=== PATIENT | male | born 1980 | race Caucasian/White ===

== ENCOUNTER 2017-09-05 12:21 | Inpatient (IN) | payer OTHER ==
[~2017-09-05] VITALS: Ht 175.3 cm; Wt 56.5 kg
[2017-09-05] MEDS ORDERED: LORAZEPAM 2 MG/ML 1 ML VIAL ONE (12:33)
[2017-09-05 12:46] LABS: HEMATOCRIT 46.8 % (42-52); HEMOGLOBIN 16.3 g/dL (14.0-18.0); MEAN CELL VOLUME 88.3 fL (80-100); MEAN CORPUSCULAR HEMOGLOBIN 30.8 pg (25-34); MEAN CORPUSCULAR HGB CONC 34.8 g/dl (32-36); MEAN PLATELET VOLUME 10.4 fL (7.4-10.4); PLATELET COUNT 339 K/uL (130-400); RED CELL DISTRIBUTION WIDTH CV 12.9 % (11.5-14.5); RED CELL DISTRIBUTION WIDTH SD 41.5 fL (36.4-46.3); WHITE BLOOD COUNT 23.27 K/uL (4.8-10.8)
--- NOTE | 2017-09-05 12:52 | EMERGENCY ROOM VISIT NOTE ---
History Report prepared by Arianne: Eric Sheikh Under the Supervision of: Dr. Margret Hidalgo M.D. First contact with patient: 12:31 Chief Complaint: STROKE SYMPTOMS Stated Complaint: STROKE LIKE, CANT SPEAK, SEIZING UP History of Present Illness The patient is a 37 year old male who presents to the Emergency Room with complaints of muscle spasms and seizing that began shorty prior to arrival. The patient's states that he was at [employer] when he started to go into full- body spasms and cramps. He also started to seize up. The patient did eat cereal for breakfast and had a BM this morning. The BM was diarrhea-like, but the notes that this is common for him due to taking Levsin. He takes Levsin for bacteria in his gut. The notes that this medication will dehydrate him at times. He is on Celexa for anxiety. Source of History: patient Onset: [place] Position: arm (bilateral), hand (bilateral), finger(s) (ALl) Quality: cramping, other (Spasming) Timing: constant Associated Symptoms: + diarrhea Review of Systems See HPI for pertinent positives & negatives. A total of 10 systems reviewed and were otherwise negative. Past Medical & Surgical Medical Problems: (1) Anxiety (2) IBS (irritable bowel syndrome) Anxiety Family History None pertinent discussed. Social History Smoking Status: Unknown if Ever Smoked Drug Use: none Marital Status: Housing Status: lives with significant other Occupation Status: employed Current/Historical Medications Scheduled Calcitriol (Calcitriol), 2 CAP PO DAILY Calcium Carbonate (Tums), 2,000 MG PO QID Citalopram Hydrobromide (Celexa), 40 MG PO QAM Cyanocobalamin (Vitamin B-12), 1,000 MCG PO QAM Ergocalciferol (Vitamin D 76102 Unit), 1 CAP PO WK Hyoscyamine Sulfate (Levsin), 2 TABS SL QID Ibuprofen Tab (Advil), 600 MG PO UD Magnesium Oxide (Magnesium-Oxide), 400 MG PO BID Potassium Ext Rel (Klor-Con), 20 MEQ PO DAILY Allergies Coded Allergies: Erythromycin (Unverified Adverse Reaction, Intermediate, RASH, 09/05/17) Physical Exam Vital Signs Date Time Temp Pulse Resp B/P (MAP) Pulse Ox O2 Delivery O2 Flow Rate FiO2 09/05/17 14:47 97 16 119/78 97 Room Air 09/05/17 13:44 101 18 107/73 100 09/05/17 13:24 100 21 82/47 98 Room Air 09/05/17 12:43 130 22 97 Nasal Cannula 2.0 09/05/17 12:38 126 158/87 99 Nasal Cannula 2.0 09/05/17 12:32 157 09/05/17 12:28 162/120 09/05/17 12:22 37.0 160 20 163/93 99 Room Air Physical Exam Vital signs reviewed. Tachycardia General: No significant distress. Anxious HEENT: No scleral icterus, PERRLA, neck supple. Atraumatic. Cardiovascular: Sig tachycardia, regular Pulmonary: Clear to auscultation bilaterally, normal work of breathing. Abdomen: Soft, nontender, nondistended, positive bowel sounds. Musculoskeletal: Atraumatic, no peripheral edema. Bilateral upper extremity carpopedal spasm Neurologic: Patient awake alert and oriented x 3, able to follow commands, but severe carpal spasms BUE Skin: Warm, dry, no rash Medical Decision & Procedures ER Provider Diagnostic Interpretation: Radiology results as stated below per my review and radiologist interpretation: PA CHEST RADIOGRAPH AND UPRIGHT AND SUPINE AP RADIOGRAPHS OF THE ABDOMEN CLINICAL HISTORY: Abdominal bloating. Multiple contractures. COMPARISON STUDY: No previous studies for comparison. FINDINGS: Lung volumes are normal. No pneumothorax or pleural effusion is noted. There is no evidence for pulmonary edema. Cardiac size is normal. Mediastinal contours are normal. There is no free air. A moderate amount stool is noted within the colon. There are tiny radiodensities within the abdomen and pelvis. IMPRESSION: 1. No free air or evidence of bowel obstruction. 2. Moderate amount stool within the colon. 3. Scattered indeterminate tiny radiodensities throughout the abdomen and pelvis which are likely within bowel. 4. No acute cardiopulmonary findings. Electronically signed by: Sigifredo Storey M.D. 09/05/2017 1:28 PM Dictated Date/Time: 09/05/2017 1:26 PM Laboratory Results Test 09/05/17 12:30 09/05/17 12:40 09/05/17 13:29 09/05/17 14:35 Neutrophils % (Manual) 65.1 % Lymphocytes % (Manual) 9.8 % Variant Lymphocytes % (manual) 17.9 % Monocytes % (Manual) 6.3 % Eosinophils % (Manual) 0.9 % Neutrophils # (Manual) 15.15 K/uL (1.4-6.5) Total Absolute Neutrophils 15.15 K/uL (1.4-6.5) Lymphocytes # (Manual) 2.28 K/uL (1.2-3.4) Absolute Variant Lymphocytes 4.17 K/uL Total Absolute Lymphocytes 6.45 K/uL (1.2-3.4) Monocytes # (Manual) 1.47 K/uL (0.11-0.59) Eosinophils # (Manual) 0.21 K/uL (0-0.5) Direct Bilirubin 0.1 mg/dl (0-0.2) Lipase 130 U/L (73-393) Thyroid Stimulating Hormone (TSH) 2.090 uIu/ml (0.300-4.500) Salicylates Level 1.9 mg/dl (2.8-20) Acetaminophen Level < 2 ug/ml (10-30) Bedside Hemoglobin 17.0 g/dl (14.0-18.0) Bedside Hematocrit 50 % (42-52) Bedside Sodium 143 mEq/L (135-144) Bedside Potassium 4.3 mEq/L (3.3-5.0) Bedside Chloride 98 mEq/L (101-112) Bedside Total CO2 24 mEq/l (24-31) Bedside Blood Urea Nitrogen 15 mg/dl (7-18) Bedside Creatinine 0.9 mg/dl (0.6-1.3) Bedside Glucose (other) 139 mg/dl (70-99) Bedside Ionized Calcium (Alice) 0.80 mmol/l (1.12-1.32) Ethyl Alcohol mg/dL < 3.0 mg/dl (0-3) Urine Color YELLOW Urine Appearance CLEAR (CLEAR) Urine pH 7.0 (4.5-7.5) Urine Specific [place] 1.007 (1.000-1.030) Urine Protein NEG (NEG) Urine Glucose (UA) NEG (NEG) Urine Ketones NEG (NEG) Urine Occult Blood NEG (NEG) Urine Nitrite NEG (NEG) Urine Bilirubin NEG (NEG) Urine Urobilinogen NEG (NEG) Urine Leukocyte Esterase NEG (NEG) Urine Opiates Screen NEG (NEG) Urine Methadone, Qualitative NEG (NEG) Urine Barbiturates NEG (NEG) Urine Phencyclidine (PCP) Level NEG (NEG) Ur Amphetamine/Methamphetamine NEG (NEG) MDMA (Ecstasy) Screen NEG (NEG) Urine Benzodiazepines Screen NEG (NEG) Urine Cocaine Metabolite NEG (NEG) Urine Marijuana (THC) NEG (NEG) Test 09/05/17 14:44 Parathyroid Hormone (Intact) 289.1 pg/mL (18.4-80.1) Laboratory results per my review. Medications Administered Medications (Trade) Dose Ordered Sig/Dylon Route Start Time Stop Time Status Last Admin Dose Admin Lorazepam (Ativan Inj) 2 mg STK-MED ONCE .ROUTE 09/05/17 12:33 09/05/17 12:34 DC 09/05/17 12:38 2 MG Sodium Chloride 2,000 ml @ 999 mls/hr Q2H1M STAT IV 09/05/17 13:05 09/05/17 15:05 DC 09/05/17 13:05 999 MLS/HR Magnesium Sulfate (Magnesium Sulfate 1gm / D5W) 2 gm NOW STAT IV 09/05/17 13:49 09/05/17 13:50 DC 09/05/17 14:03 2 GM Calcium Gluconate 4000 mg/Sodium Chloride 140 ml @ 35 mls/hr NOW STAT IV 09/05/17 14:33 09/05/17 18:32 DC 09/05/17 14:52 35 MLS/HR ED Course 1232: Past medical records reviewed. The patient was evaluated in room A1. A complete history and physical examination was performed. 1233: Ordered Ativan 2 mg IV. 1305: Ordered Sodium Chloride 2000 mL @ 999 mL/hr IV. 1349: Ordered Magnesium Sulfate 2 gm IV. Medical Decision Differential diagnosis: Etiologies such as premature contractions, electrolyte abnormality, cardiac dysrhythmia, thyroid dysfunction, pulmonary embolism, infection, gastrointestinal, as well as others were entertained. This pt was evaluated and appeared to be in significant discomfort. Pt was tachycardic with sig BUE spasms. 2 mg IV ativan and IVF were initiated. Pt was was found to be neurologically intact otherwise. Lab work reveals a significant hypomagnesemia, hypocalcemia. Pt VS normalized significantly. He was feeling improved. The etiology of the electrolyte abnl is unclear. Pt was d/w the hospitalist service for further managment. Impression Primary Impression: Carpopedal spasm Additional Impressions: Hypocalcemia Hypomagnesemia Critical Care I have personally spent greater than 35 minutes of critical care time in the direct management of this patient. This includes bedside care, interpretation of diagnostic studies, and testing, discussion with consultants, patient, and family members, and other required patient management activities. This 35 minutes is in excess of all separately billable procedures. Scribe Attestation The scribe's documentation has been prepared under my direction and personally reviewed by me in its entirety. I confirm that the note above accurately reflects all work, treatment, procedures, and medical decision making performed by me. Departure Information Prescriptions Calcitriol (CALCITRIOL) 0.5 Mcg Cap 2 CAP PO DAILY for 30 Days, #60 CAP 2 Refills Prov: Roldan Murray, DO 09/07/17 Ergocalciferol (VITAMIN D 64876 UNIT) 50,000 Unit Cap 1 CAP PO WK for 28 Days, #4 CAP 2 Refills Prov: Roldan Murray, DO 09/07/17 Calcium Carbonate (Tums) 500 Mg Chew 2000 MG PO QID for 30 Days, #480 TABS Prov: Roldan Murray, DO 09/07/17 Cyanocobalamin (Vitamin B-12) 500 Mcg Tab 1000 MCG PO QAM for 30 Days, #60 TAB Prov: Roldan Murray, DO 09/07/17 Potassium Ext Rel (Klor-Con) 20 Meq Tabcr 20 MEQ PO DAILY for 30 Days, #30 TAB Prov: Roldan Murray, DO 09/07/17 Magnesium Oxide (Magnesium-Oxide) 400 Mg Tab 400 MG PO BID for 30 Days, #60 TAB Prov: Roldan Murray, DO 09/07/17 Referrals Gus Gonzáles M.D.([facility]) (PCP) Patient Instructions My [facility] Problem Qualifiers
[2017-09-05 12:53] LABS: ISTAT CREATININE 0.9 mg/dl (0.6-1.3); ISTAT IONIZED CALCIUM 0.8 mmol/l (1.12-1.32); ISTAT POTASSIUM 4.3 mEq/L (3.3-5.0)
[2017-09-05 13:02] LABS: ALBUMIN 3.7 gm/dl (3.4-5.0); ALT/SGPT 40 U/L (12-78); AST/SGOT 37 U/L (15-37); BLOOD UREA NITROGEN 15 mg/dl (7-18); CALCIUM 6.4 mg/dl (8.5-10.1); CARBON DIOXIDE 27 mmol/L (21-32); CREATININE 1.12 mg/dl (0.60-1.40); GLUCOSE 136 mg/dl (70-99); LIPASE 130 U/L (73-393); POTASSIUM 4.1 mmol/L (3.5-5.1); SODIUM 141 mmol/L (136-145)
[2017-09-05] MEDS ORDERED: SODIUM CHLORIDE 0.9% 1000ML 2,000 ML IV STA (13:05)
[2017-09-05 13:11] LABS: ALKALINE PHOSPHATASE 69 U/L (45-117)
--- NOTE | 2017-09-05 13:29 | DIAGNOSTIC IMAGING REPORT ---
PA CHEST RADIOGRAPH AND UPRIGHT AND SUPINE AP RADIOGRAPHS OF THE ABDOMEN CLINICAL HISTORY: Abdominal bloating. Multiple contractures. COMPARISON STUDY: No previous studies for comparison. FINDINGS: Lung volumes are normal. No pneumothorax or pleural effusion is noted. There is no evidence for pulmonary edema. Cardiac size is normal. Mediastinal contours are normal. There is no free air. A moderate amount stool is noted within the colon. There are tiny radiodensities within the abdomen and pelvis. IMPRESSION: 1. No free air or evidence of bowel obstruction. 2. Moderate amount stool within the colon. 3. Scattered indeterminate tiny radiodensities throughout the abdomen and pelvis which are likely within bowel. 4. No acute cardiopulmonary findings. Electronically signed by: Sigifredo Storey M.D. 09/05/2017 1:28 PM Dictated Date/Time: 09/05/2017 1:26 PM
[2017-09-05] MEDS ORDERED: MAGNESIUM SULFATE 1GM / D5W 1 GM BAG IV STA (13:49)
[2017-09-05] MEDS ORDERED: CALCIUM GLUCONATE 10% 10 ML VIAL IV STA (14:23)
[2017-09-05] MEDS ORDERED: CALCIUM GLUCONATE 10% 4,000 MG in SODIUM CHLORIDE 0.9% 100ML 100 ML IV STA (14:33)
[2017-09-05] MEDS ORDERED: HYOS1TAB SL (14:36)
[2017-09-05] MEDS ORDERED: CHOL2000 PO (14:36)
[2017-09-05] MEDS ORDERED: CITA40TA12 PO (14:36)
[2017-09-05] MEDS ORDERED: MULT-884 PO (14:36)
[2017-09-05] MEDS ORDERED: IBUP-103 PO (14:39)
[2017-09-05] MEDS ORDERED: ACETAMINOPHEN 325 MG TAB PO PRN (15:45)
--- NOTE | 2017-09-05 16:24 | History and Physical ---
History & Physical Date & Time of Service: Sep 05, 2017 at 16:24 Chief Complaint: Stroke Like, Cant Speak, Seizing Up Primary Care Physician: Gus Gonzáles M.D.(BASILIO) History of Present Illness Source: patient, clinic records, hospital records Patient is a 37yo M with a PMH of IBS and anxiety who presents with muscle spasms and generalized weakness beginning [employer]. Patient has been experiencing tingling in fingers, hands and feet for about a week, which has happened to him before and usually resolved with hydration. This morning at work, patient noticed he was having difficulty typing due to his hands "seizing up". Was unable to straighten out fingers and had difficulty gripping the steering wheel of his car. took him to urgent care and by this point patient was experiencing throbbing pain in both hands and legs "weren't working". [place] generally weak and was having difficulty speaking. Was sent to ED for further evaluation. Denies any fever, chills, headache, lightheadedness, visual changes , chest pain, SOB, abdominal pain, nausea, vomiting, dysuria or constipation. Has a history of IBS for which he takes Levsin. Endorses chronic bouts of diarrhea and no recent bowel changes. Denies change in appetite or unintentional weight loss. States that he received an extensive GI workup when he lived in [place] that was negative. Upon arrival in ED, was tachycardic with HR of 160. Found to have Mg of 1 and Ca of 6. Was started on IV resuscitation of electrolytes and given Ativan for anxiety. Leukocytosis of 23. Past Medical/Surgical History Medical Problems: (1) Anxiety Status: Chronic (2) IBS (irritable bowel syndrome) Status: Chronic Social History Smoking Status: Never Smoker Drug Use: none Marital Status: Allergies Coded Allergies: Erythromycin (Unverified Adverse Reaction, Intermediate, RASH, 09/05/17) Home Medications Scheduled Cholecalciferol (Vitamin D3), 1 CAP PO QAM Citalopram Hydrobromide (Celexa), 40 MG PO QAM Hyoscyamine Sulfate (Levsin), 2 TABS SL QID Ibuprofen Tab (Advil), 600 MG PO UD Multiple Vitamin (Multi Vitamin Daily), 1 TAB PO QAM Review of Systems Ten systems reviewed and negative except as noted in the HPI. Physical Exam Vital Signs Date Time Temp Pulse Resp B/P (MAP) Pulse Ox O2 Delivery O2 Flow Rate FiO2 09/05/17 14:47 97 16 119/78 97 Room Air 09/05/17 13:44 101 18 107/73 100 09/05/17 13:24 100 21 82/47 98 Room Air 09/05/17 12:43 130 22 97 Nasal Cannula 2.0 09/05/17 12:38 126 158/87 99 Nasal Cannula 2.0 09/05/17 12:32 157 09/05/17 12:28 162/120 09/05/17 12:22 37.0 160 20 163/93 99 Room Air General Appearance: + thin, + pertinent finding (pale ) Head: normocephalic, atraumatic Eyes: normal inspection, PERRL, sclerae normal ENT: normal ENT inspection, hearing grossly normal, pharynx normal (dry mucous membranes ) Neck: supple, thyroid normal, trachea midline Respiratory/Chest: chest non-tender, lungs clear, normal breath sounds, no respiratory distress, no accessory muscle use Cardiovascular: no murmur, normal peripheral pulses, + tachycardia Abdomen/GI: non tender, soft, no organomegaly Back: normal inspection Extremities/Musculoskelatal: normal inspection, no calf tenderness, no pedal edema, + pertinent finding (Trousseau sign bilaterally ) Neurologic/Psych: no motor/sensory deficits, alert, normal mood/affect, oriented x 3 Skin: warm/dry, no rash, + pallor Diagnostics Laboratory Results Results Past 24 Hours Test 09/05/17 12:30 09/05/17 12:39 09/05/17 12:40 09/05/17 13:29 Range/Units White Blood Count 23.27 4.8-10.8 K/uL Red Blood Count 5.30 4.7-6.1 M/uL Hemoglobin 16.3 14.0-18.0 g/dL Hematocrit 46.8 42-52 % Mean Corpuscular Volume 88.3 80-100 fL Mean Corpuscular Hemoglobin 30.8 25-34 pg Mean Corpuscular Hemoglobin Concent 34.8 32-36 g/dl Platelet Count 339 130-400 K/uL Mean Platelet Volume 10.4 7.4-10.4 fL RDW Standard Deviation 41.5 36.4-46.3 fL RDW Coefficient of Variation 12.9 11.5-14.5 % Neutrophils % (Manual) 65.1 % Lymphocytes % (Manual) 9.8 % Variant Lymphocytes % (manual) 17.9 % Monocytes % (Manual) 6.3 % Eosinophils % (Manual) 0.9 % Neutrophils # (Manual) 15.15 1.4-6.5 K/uL Total Absolute Neutrophils 15.15 1.4-6.5 K/uL Lymphocytes # (Manual) 2.28 1.2-3.4 K/uL Absolute Variant Lymphocytes 4.17 K/uL Total Absolute Lymphocytes 6.45 1.2-3.4 K/uL Monocytes # (Manual) 1.47 0.11-0.59 K/uL Eosinophils # (Manual) 0.21 0-0.5 K/uL Sodium Level 141 136-145 mmol/L Potassium Level 4.1 3.5-5.1 mmol/L Chloride Level 103 98-107 mmol/L Carbon Dioxide Level 27 21-32 mmol/L Anion Gap 11.0 27.0 16-25 mmol/L Blood Urea Nitrogen 15 7-18 mg/dl Creatinine 1.12 0.60-1.40 mg/dl Estimated GFR () 98.1 Estimated GFR (Non- 84.7 BUN/Creatinine Ratio 13.4 10-20 Random Glucose 136 70-99 mg/dl Calcium Level 6.4 8.5-10.1 mg/dl Magnesium Level 1.1 1.8-2.4 mg/dl Total Bilirubin 0.6 0.2-1 mg/dl Direct Bilirubin 0.1 0-0.2 mg/dl Aspartate Amino Transf (AST/SGOT) 37 15-37 U/L Alanine Aminotransferase (ALT/SGPT) 40 12-78 U/L Alkaline Phosphatase 69 45-117 U/L Total Creatine Kinase 381 39-308 U/L Total Protein 7.0 6.4-8.2 gm/dl Albumin 3.7 3.4-5.0 gm/dl Lipase 130 73-393 U/L Thyroid Stimulating Hormone (TSH) 2.090 0.300-4.500 uIu/ml Salicylates Level 1.9 2.8-20 mg/dl Acetaminophen Level < 2 10-30 ug/ml Phosphorus Level 4.3 2.5-4.9 mg/dl Bedside Hemoglobin 17.0 14.0-18.0 g/dl Bedside Hematocrit 50 42-52 % Bedside Sodium 143 135-144 mEq/L Bedside Potassium 4.3 3.3-5.0 mEq/L Bedside Chloride 98 101-112 mEq/L Bedside Total CO2 24 24-31 mEq/l Bedside Blood Urea Nitrogen 15 7-18 mg/dl Bedside Creatinine 0.9 0.6-1.3 mg/dl Bedside Glucose (other) 139 70-99 mg/dl Bedside Ionized Calcium (Alice) 0.80 1.12-1.32 mmol/l Ethyl Alcohol mg/dL < 3.0 0-3 mg/dl Test 09/05/17 14:35 09/05/17 14:44 09/05/17 15:54 09/05/17 16:18 Range/Units Urine Color YELLOW Urine Appearance CLEAR CLEAR Urine pH 7.0 4.5-7.5 Urine Specific [place] 1.007 1.000-1.030 Urine Protein NEG NEG Urine Glucose (UA) NEG NEG Urine Ketones NEG NEG Urine Occult Blood NEG NEG Urine Nitrite NEG NEG Urine Bilirubin NEG NEG Urine Urobilinogen NEG NEG Urine Leukocyte Esterase NEG NEG Urine Opiates Screen NEG NEG Urine Methadone, Qualitative NEG NEG Urine Barbiturates NEG NEG Urine Phencyclidine (PCP) Level NEG NEG Ur Amphetamine/Methamphetamine NEG NEG MDMA (Ecstasy) Screen NEG NEG Urine Benzodiazepines Screen NEG NEG Urine Cocaine Metabolite NEG NEG Urine Marijuana (THC) NEG NEG Parathyroid Hormone (Intact) 289.1 18.4-80.1 pg/mL Diagnostic Radiology Chest/abd XR: IMPRESSION: 1. No free air or evidence of bowel obstruction. 2. Moderate amount stool within the colon. 3. Scattered indeterminate tiny radiodensities throughout the abdomen and pelvis which are likely within bowel. 4. No acute cardiopulmonary findings. EKG Normal sinus rhythm Cannot rule out Anterior infarct , age undetermined Impression Assessment and Plan Patient is a 37yo M with a PMH of IBS and anxiety who presents with muscle spasms and generalized weakness beginning [employer] and was found to by hypocalcemic to 6. Hypocalcemia: -Carpopedal spasms upon arrival, + Trousseau sign -Improved with IV calcium gluconate -Mg of 1 upon arrival. Replacing -Phos, TSH normal. PTH elevated to 298 -Nephro consulted -Vit D, B12, folate, SPEP pending -Recheck electrolytes and replace if indicated -GI losses from diarrhea likely a component -Urine tox screen negative -EKG without acute changes -Monitor on telemetry Leukocytosis: -WBC elevated to 23 -Denies fever, chills, no clear source of infection -CXR, UA without abnormalities -Likely a stress reaction -CK mildly elevated to 381 -IVF resuscitation, replace electrolytes -Repeat CBC, CK in AM Tachycardia: resolved -2/2 anxiety, dehydration -Improved with aggressive IVF resuscitation, ativan -Monitor IBS: -H/o extensive negative GI workup at OSH 5 years ago -Cont Levsin Anxiety: -Cont SSRI -Ativan PRN Malnutrition: -BMI of 19 -Endorses significant weight loss 5 yrs ago when GI problems began -Denies intentional weight loss, poor diet -Dietitian consult DVT Ppx: Teds, SCDs Code status: FULL PCP: Nivia Dispo: Admitted to telemetry. Plan to return home once medically stable. Patient seen in collaboration with Dr. Moctezuma. Please see addendum. ATTENDING ADDENDUM Patient seen and examined care coordinated with Gerri Duke PA-C 37-year-old male with prior history of anxiety disorder irritable bowel syndrome , presented to ER with Carpopedal spasms Patient mentioned he has intermittent diarrhea on and off due to irritable bowel syndrome, having tingling numbness on his fingers and toes since Monday Today while at work it got progressively worse, had severe spasm of both hands- he could not work on his computer keyboard, later had stiffness on left arm went to see urgent care at [facility], developed lower extremity weakness and dysarthria Sent to ER via ambulance Lab work revealed Ionized calcium 0.98/total calcium 6.4 Mag 1.1 Marked leukocytosis 23K Patient was given IV calcium gluconate in ER, IV fluids bolus Symptoms resolved Symptom resolved after IV calcium gluconate Patient mentions that he does get occasional tingling numbness of his fingers and extremities which resolves spontaneously No report of fever chills No cough or shortness of breath Patient admitted to telemetry Started with IV fluids normal saline at 125 mL/h Nephrology consulted, appreciate input Lab work PRP / mg/phos/calcium/ionized calcium will be continued to monitor every 4 hours And correct accordingly Case discussed with [facility] endocrine Dr. Skinny Strickland PTH level elevated to more than 287, low vitamin D level/normal TSH Per endocrine: Patient's presentation likely secondary to severe GI malabsorption PTH level appropriately elevated Recommend to give 50,000 vitamin D oral x1 dose now and q. weekly Will need to be continued for at least 3 months Add Tums 2000 mg 4 times daily Does not believe patient has primary endocrine disorder Recommend outpatient GI workup for malabsorption Resuscitation Status VTE Prophylaxis Will order VTE Prophylaxis: Yes
[2017-09-05] MEDS ORDERED: SODIUM CHLORIDE 0.9% 1000ML 1,000 ML IV SCH (19:00)
[2017-09-05] MEDS ORDERED: ERGOCALCIFEROL 50,000 INTER.UNIT CAP PO ONE (19:30)
[2017-09-05] MEDS ORDERED: CALCIUM CARBONATE 500 MG CHEWABLE PO PRN ×2 (19:30→20:15)
[2017-09-05 19:51] VITALS: BP 114/68; PULSE 77; TEMP 36.4; O2SAT 97
[2017-09-05 20:00] VITALS: BP 115/67; PULSE 87; TEMP 36.7; O2SAT 100; BMI 19.0; BMI 19.6
[2017-09-05] MEDS ORDERED: POLYETHYLENE (MIRALAX) 17 GM PACK PO PRN (20:15)
[2017-09-05 20:16] LABS: CALCIUM 7.1 mg/dl (8.5-10.1); CREATININE 0.68 mg/dl (0.60-1.40); POTASSIUM 2.4 mmol/L (3.5-5.1)
[2017-09-05] MEDS ORDERED: POTASSIUM CHLORIDE 10 MEQ TABCR PO ONE (21:00)
[2017-09-05] MEDS ORDERED: CALCIUM GLUCONATE 10% 1,000 MG in SODIUM CHLORIDE 0.9% 50ML 50 ML IV ONE (21:00)
[2017-09-05 21:04] LABS: HEMATOCRIT 36.9 % (42-52); HEMOGLOBIN 13.2 g/dL (14.0-18.0); MEAN CELL VOLUME 85.8 fL (80-100); MEAN CORPUSCULAR HEMOGLOBIN 30.7 pg (25-34); MEAN CORPUSCULAR HGB CONC 35.8 g/dl (32-36); MEAN PLATELET VOLUME 10.7 fL (7.4-10.4); PLATELET COUNT 247 K/uL (130-400); RED CELL DISTRIBUTION WIDTH CV 12.7 % (11.5-14.5); RED CELL DISTRIBUTION WIDTH SD 39.7 fL (36.4-46.3); WHITE BLOOD COUNT 10.09 K/uL (4.8-10.8)
[2017-09-05] MEDS: NSS + 20MEQ KCL 1000ML 1,000 ML IV SCH (21:37)
[2017-09-05] MEDS: MAGNESIUM OXIDE 400 MG TAB PO SCH (21:37)
[2017-09-05 23:50] VITALS: BP 108/64; PULSE 79; TEMP 36.6; O2SAT 97
[2017-09-06 03:50] VITALS: BP 103/62; PULSE 82; TEMP 36.4; O2SAT 98
[2017-09-06] MEDS: NSS + 20MEQ KCL 1000ML 1,000 ML IV SCH ×3 (04:01→17:15)
[2017-09-06 04:14] LABS: HEMATOCRIT 34.6 % (42-52); HEMOGLOBIN 12.3 g/dL (14.0-18.0); MEAN CELL VOLUME 86.3 fL (80-100); MEAN CORPUSCULAR HEMOGLOBIN 30.7 pg (25-34); MEAN CORPUSCULAR HGB CONC 35.5 g/dl (32-36); MEAN PLATELET VOLUME 10.2 fL (7.4-10.4); PLATELET COUNT 217 K/uL (130-400); RED CELL DISTRIBUTION WIDTH CV 12.8 % (11.5-14.5); WHITE BLOOD COUNT 7.38 K/uL (4.8-10.8)
[2017-09-06 04:41] LABS: ALBUMIN 2.5 gm/dl (3.4-5.0); CALCIUM 6.5 mg/dl (8.5-10.1); CREATININE 0.65 mg/dl (0.60-1.40); POTASSIUM 2.7 mmol/L (3.5-5.1)
[2017-09-06 04:58] LABS: PHOSPHORUS 3.3 mg/dl (2.5-4.9); TOTAL PROTEIN 4.7 gm/dl (6.4-8.2)
[2017-09-06] MEDS ORDERED: MAGNESIUM SULFATE 1GM / D5W 100 ML IV STA (05:07)
[2017-09-06] MEDS ORDERED: CALCIUM GLUCONATE IV STA (05:11)
[2017-09-06] MEDS ORDERED: SODIUM CHLORIDE 0.9% IV STA (05:11)
[2017-09-06] MEDS ORDERED: POTASSIUM CHLORIDE 10 MEQ TABCR PO ONE ×2 (05:15→07:00)
[2017-09-06] MEDS: MAGNESIUM OXIDE 400 MG TAB PO SCH ×2 (07:38→20:38)
[2017-09-06 07:46] VITALS: BP 120/70; PULSE 66; TEMP 36.6; O2SAT 97
[2017-09-06] MEDS: POTASSIUM CHLORIDE 10 MEQ TABCR PO SCH (09:00)
[2017-09-06] MEDS ORDERED: CALCITRIOL 0.25 MCG CAP PO SCH (09:00)
[2017-09-06] MEDS: CYANOCOBALAMIN 500 MCG TAB (VIT B-12) PO SCH (09:06)
--- NOTE | 2017-09-06 10:00 | Progress Note ---
Subjective Date of Service: Sep 06, 2017. Subjective Pt evaluation today including: conversation w/ patient, physical exam, lab review, review of studies, conversation w/ distributor sales consultant, review of inpatient medication list Saw/examined the patient in room 211 States his muscle spasms have resolved Denies chest pain/shortness of breath Denies abdominal pain/diarrhea Review of Systems Constitutional: No fever, No chills, No weakness Respiratory: No cough, No sputum, No wheezing, No shortness of breath, No dyspnea on exertion, No dyspnea at rest, No hemoptysis Cardiac: No chest pain, No edema, No palpitations Musculoskeletal: + problem reported (spasms - resolved), No joint pain, No muscle pain Heme: No abnormal bleeding/bruising Medications Current Inpatient Medications Medications (Trade) Dose Ordered Sig/Dylon Route Start Time Stop Time Status Last Admin Dose Admin Acetaminophen (Tylenol Tab) 650 mg Q4H PRN PO 09/05/17 15:45 10/05/17 15:44 Magnesium Oxide (Mag-Ox Tab) 400 mg BID PO 09/05/17 21:00 10/05/17 20:59 09/06/17 07:38 400 MG Calcium Carbonate (Tums Chew Tab) 2,000 mg QID PRN PO 09/05/17 20:15 10/05/17 20:14 Polyethylene (Miralax Powder Packet) 17 gm DAILY PRN PO 09/05/17 20:15 10/05/17 20:14 Calcitriol (Rocaltrol Cap) 0.25 mcg QAM PO 09/06/17 09:00 10/06/17 08:59 09/06/17 07:38 0.25 MCG Potassium Chloride/Sodium Chloride 1,000 ml @ 150 mls/hr Q6H40M IV 09/05/17 21:00 10/05/17 20:59 09/06/17 04:01 150 MLS/HR Cyanocobalamin (Vitamin B-12 Tab) 1,000 mcg QAM PO 09/06/17 09:00 10/06/17 08:59 Objective Vital Signs Date Time Temp Pulse Resp B/P (MAP) Pulse Ox O2 Delivery O2 Flow Rate FiO2 09/06/17 07:46 36.6 66 18 120/70 (87) 97 Room Air 09/06/17 04:00 Room Air 09/06/17 03:50 36.4 82 17 103/62 (76) 98 Room Air 09/06/17 00:00 Room Air 09/05/17 23:50 36.6 79 16 108/64 (79) 97 Room Air 09/05/17 20:00 36.7 87 18 115/67 100 Room Air 09/05/17 20:00 Room Air 09/05/17 19:51 36.4 77 20 114/68 (83) 97 Room Air 09/05/17 17:23 86 15 118/72 100 09/05/17 16:24 90 20 118/72 98 Room Air 09/05/17 14:47 97 16 119/78 97 Room Air 09/05/17 13:44 101 18 107/73 100 09/05/17 13:24 100 21 82/47 98 Room Air 09/05/17 12:43 130 22 97 Nasal Cannula 2.0 09/05/17 12:38 126 158/87 99 Nasal Cannula 2.0 09/05/17 12:32 157 09/05/17 12:28 162/120 09/05/17 12:22 37.0 160 20 163/93 99 Room Air Physical Exam General Appearance: no apparent distress, + thin Respiratory/Chest: chest non-tender, lungs clear, normal breath sounds, no respiratory distress, no accessory muscle use Cardiovascular: regular rate, rhythm, no edema, no gallop, no JVD, no murmur Abdomen: normal bowel sounds, non tender, soft Extremities: normal range of motion, non-tender, normal inspection, no pedal edema, no calf tenderness Neurologic/Psychiatric: no motor/sensory deficits, alert, normal mood/affect Laboratory Results Last 24 Hours Test 09/05/17 12:30 09/05/17 12:39 09/05/17 12:40 09/05/17 13:29 White Blood Count 23.27 K/uL Red Blood Count 5.30 M/uL Hemoglobin 16.3 g/dL Hematocrit 46.8 % Mean Corpuscular Volume 88.3 fL Mean Corpuscular Hemoglobin 30.8 pg Mean Corpuscular Hemoglobin Concent 34.8 g/dl Platelet Count 339 K/uL Mean Platelet Volume 10.4 fL RDW Standard Deviation 41.5 fL RDW Coefficient of Variation 12.9 % Neutrophils % (Manual) 65.1 % Lymphocytes % (Manual) 9.8 % Variant Lymphocytes % (manual) 17.9 % Monocytes % (Manual) 6.3 % Eosinophils % (Manual) 0.9 % Neutrophils # (Manual) 15.15 K/uL Total Absolute Neutrophils 15.15 K/uL Lymphocytes # (Manual) 2.28 K/uL Absolute Variant Lymphocytes 4.17 K/uL Total Absolute Lymphocytes 6.45 K/uL Monocytes # (Manual) 1.47 K/uL Eosinophils # (Manual) 0.21 K/uL Sodium Level 141 mmol/L Potassium Level 4.1 mmol/L Chloride Level 103 mmol/L Carbon Dioxide Level 27 mmol/L Anion Gap 11.0 mmol/L 27.0 mmol/L Blood Urea Nitrogen 15 mg/dl Creatinine 1.12 mg/dl Estimated GFR () 98.1 Estimated GFR (Non- 84.7 BUN/Creatinine Ratio 13.4 Random Glucose 136 mg/dl Calcium Level 6.4 mg/dl Magnesium Level 1.1 mg/dl Total Bilirubin 0.6 mg/dl Direct Bilirubin 0.1 mg/dl Aspartate Amino Transf (AST/SGOT) 37 U/L Alanine Aminotransferase (ALT/SGPT) 40 U/L Alkaline Phosphatase 69 U/L Total Creatine Kinase 381 U/L Total Protein 7.0 gm/dl Albumin 3.7 gm/dl Lipase 130 U/L Thyroid Stimulating Hormone (TSH) 2.090 uIu/ml Salicylates Level 1.9 mg/dl Acetaminophen Level < 2 ug/ml Phosphorus Level 4.3 mg/dl Bedside Hemoglobin 17.0 g/dl Bedside Hematocrit 50 % Bedside Sodium 143 mEq/L Bedside Potassium 4.3 mEq/L Bedside Chloride 98 mEq/L Bedside Total CO2 24 mEq/l Bedside Blood Urea Nitrogen 15 mg/dl Bedside Creatinine 0.9 mg/dl Bedside Glucose (other) 139 mg/dl Bedside Ionized Calcium (Alice) 0.80 mmol/l Ethyl Alcohol mg/dL < 3.0 mg/dl Test 09/05/17 14:35 09/05/17 14:44 09/05/17 18:09 09/05/17 19:26 Urine Color YELLOW Urine Appearance CLEAR Urine pH 7.0 Urine Specific [place] 1.007 Urine Protein NEG Urine Glucose (UA) NEG Urine Ketones NEG Urine Occult Blood NEG Urine Nitrite NEG Urine Bilirubin NEG Urine Urobilinogen NEG Urine Leukocyte Esterase NEG Urine Opiates Screen NEG Urine Methadone, Qualitative NEG Urine Barbiturates NEG Urine Phencyclidine (PCP) Level NEG Ur Amphetamine/Methamphetamine NEG MDMA (Ecstasy) Screen NEG Urine Benzodiazepines Screen NEG Urine Cocaine Metabolite NEG Urine Marijuana (THC) NEG Parathyroid Hormone (Intact) 289.1 pg/mL Vitamin B12 Level 207 pg/mL 25-Hydroxy Vitamin D Total 18.5 ng/ml Folate > 24.00 ng/mL Sodium Level 144 mmol/L Potassium Level 2.4 mmol/L Chloride Level 111 mmol/L Carbon Dioxide Level 27 mmol/L Anion Gap 6.0 mmol/L Blood Urea Nitrogen 10 mg/dl Creatinine 0.68 mg/dl Est Creatinine Clear Calc Drug Dose 125.2 ml/min Estimated GFR () 143.4 Estimated GFR (Non- 123.7 BUN/Creatinine Ratio 15.4 Random Glucose 89 mg/dl Calcium Level 7.1 mg/dl Magnesium Level 1.8 mg/dl Test 09/05/17 19:31 09/06/17 00:20 09/06/17 04:03 09/06/17 08:00 White Blood Count 10.09 K/uL 7.38 K/uL Red Blood Count 4.30 M/uL 4.01 M/uL Hemoglobin 13.2 g/dL 12.3 g/dL Hematocrit 36.9 % 34.6 % Mean Corpuscular Volume 85.8 fL 86.3 fL Mean Corpuscular Hemoglobin 30.7 pg 30.7 pg Mean Corpuscular Hemoglobin Concent 35.8 g/dl 35.5 g/dl RDW Standard Deviation 39.7 fL 41.0 fL RDW Coefficient of Variation 12.7 % 12.8 % Platelet Count 247 K/uL 217 K/uL Mean Platelet Volume 10.7 fL 10.2 fL Ionized Calcium 0.98 mmol/l 0.95 mmol/l Lactic Acid Level 0.4 mmol/L Sodium Level 144 mmol/L Potassium Level 2.7 mmol/L Chloride Level 112 mmol/L Carbon Dioxide Level 27 mmol/L Anion Gap 5.0 mmol/L Blood Urea Nitrogen 9 mg/dl Creatinine 0.65 mg/dl Est Creatinine Clear Calc Drug Dose 131.0 ml/min Estimated GFR () 146.1 Estimated GFR (Non- 126.0 BUN/Creatinine Ratio 14.6 Random Glucose 89 mg/dl Calcium Level 6.5 mg/dl Phosphorus Level 3.3 mg/dl Magnesium Level 1.6 mg/dl Total Bilirubin 0.6 mg/dl Aspartate Amino Transf (AST/SGOT) 52 U/L Alanine Aminotransferase (ALT/SGPT) 32 U/L Alkaline Phosphatase 44 U/L Total Creatine Kinase 1279 U/L Total Protein 4.7 gm/dl Albumin 2.5 gm/dl Globulin 2.2 gm/dl Albumin/Globulin Ratio 1.1 Assessment and Plan This is a 37 year old male with a past medical history of diarrhea-predominant IBS, depression/mood disorder, vitamin D deficiency - presents with muscle spasms and generalized weakness and subsequently found to have hypocalcemia Hypocalcemia and Secondary Hyperparathyroidism in the setting of Vitamin D deficiency, Hypomagnesemia Possibly due to GI Malabsorption 09/06 - patient has a hx. of IBS, diarrhea predominant; possibly related to malabsorption - Ca is 6.5; low ionized calcium, low magnesium - patient received 50,000 units of Vitamin D, will use this weekly for 2-3 months - recheck Vitamin D levels in 2-3 months as outpatient - appreciate nephrology input; calcitriol dose increased to 1mcg daily - calcium carbonate QID - Mg on admission was 1.1 - repleted and now up to 1.6, Mag oxide tabs 400mg BID - repeat PRP, Ionized Ca, Mg pending Hypokalemia 09/06 - potassium levels have been low since admission - will monitor him on tele; no EKG changes - K = 2.7 at 4AM; will replete and recheck Rhabdomyolysis - CPK level is climbing to 1200 - likely due to muscle spasms that were present on admission - continue IVFs with potassium; and monitor the CPK/kidney function/electrolytes Unspecified Protein Calorie Malnutrition Weight Loss - low protein levels, low albumin levels - patient has had weight loss of 50-60lbs. - is having difficulty bringing his weight back up; secondary to diarrhea/ abdominal cramping from IBS - will consult hose tester - outpatient GI follow-up - will check transglutaminase levels Vitamin B12 deficiency - like above, his B12 deficiency is likely due to a malabsorption issue - will supplement with vitamin B12 1000mcg daily for now Depression/Mood Disorder - continue Celexa DVT ppx - ambulation FULL CODE
--- NOTE | 2017-09-06 10:02 | NEPHROLOGY CONSULTATION ---
DATE OF CONSULTATION: 09/06/2017 ATTENDING OF RECORD: Dr. Murray REASON FOR CONSULTATION: Multiple electrolyte abnormalities. HISTORY OF PRESENT ILLNESS: This is a 37-year-old male with a history of irritable bowel syndrome who takes Levsin to help control his symptoms of irritable bowel. Prior to Levsin, the patient would get a significant abdominal cramps from bacterial overgrowth and then feel lethargic for several days afterwards, however, with the Levsin the episodes have not been as severe. The patient for the past week and a half to 2 weeks has been feeling tingling of the fingertips, in the legs as well as along the chest with cramping. The patient denies any significant diarrhea, no significant weight loss. The patient presented to the Emergency Room with a calcium level of 6.4, mag level of 1.1, albumin of 3.7, TSH of 2, PTH of 290, vitamin D of 18. The patient's potassium level is still low at 2.7, ionized calcium now at 0.95, magnesium level up to 1.6. The patient's symptoms have improved and I continued to replete aggressively. PAST MEDICAL HISTORY: Irritable bowel syndrome. PAST SURGICAL HISTORY: Denies. SOCIAL HISTORY: No smoking, no drugs. Occasional liquor over the weekends. HOME MEDICATIONS: Significant for Levsin as well as Advil as needed. CURRENT MEDICATIONS: Calcitriol 0.25 mcg daily, mag oxide 400 mg p.o. b.i.d., normal saline with 20 of K at 150 mL an hour, the patient so far has received 90 mEq of oral potassium, 8 g of IV calcium gluconate, 2 g of IV mag. REVIEW OF SYSTEMS: Does have loose bowels chronically. No nausea or vomiting. No chest pain, no shortness of breath. No weight loss. No headaches, no blurry vision, no dysphagia. The patient currently asymptomatic. All other review of systems otherwise negative. PHYSICAL EXAMINATION: VITAL SIGNS: Temperature 36.6, pulse 66, respiratory rate is 18, blood pressure 120/70, satting 97% on room air. GENERAL: Awake, alert, oriented x3. EYES: No scleral icterus. ENT: Moist mucous membranes. NECK: Supple. PULMONARY: Clear to auscultation. CARDIAC: Regular rate and rhythm. ABDOMEN: Bowel sounds positive, soft, nontender. EXTREMITIES: No clubbing, cyanosis, or edema. NEUROLOGICALLY: Nonfocal. DERMATOLOGIC: No rash or ulcers noted. LABORATORIES: Pending for this morning. Latest labs, sodium level 144, potassium 2.7, chloride is 112, bicarb 27, BUN is 9, creatinine 0.65, glucose 89, calcium 6.5, ionized calcium 0.95, phos 3.3, mag is 1.6. AST 52, alk phos 44, CK 1279, albumin 2.5. White count 7, H and H 12 and 34, platelet count is 217. UA is bland. Urine tox screen negative. Immunofixation pending. Chest and abdomen x-ray shows moderate amount of stool within the colon. No acute cardiopulmonary findings. ASSESSMENT AND PLAN: Multiple electrolyte abnormalities which I feel most prudently is hypomagnesemia and then with that develops hypocalcemia and hypokalemia, likely malabsorption from chronic GI issues, however, we will double check if Levsin has any contributing causes to hypomagnesemia. There is a possibility that the patient could be losing them through the kidneys as well and we will do a workup to try to differentiate GI versus renal losses. For now I aggressively replete, I would like to have electrolytes stable on appropriate oral supplementation prior to going home. PTH levels were elevated, so unlikely to have hypoparathyroidism. TSH levels are normal. Screening for myeloma to be thorough and we will continue to replete aggressively with multiple electrolytes. I appreciate the consultation.
[2017-09-06 10:20] LABS: CALCIUM 7.7 mg/dl (8.5-10.1); CREATININE 0.74 mg/dl (0.60-1.40); POTASSIUM 3.6 mmol/L (3.5-5.1)
[2017-09-06] MEDS: CALCITRIOL 0.25 MCG CAP PO SCH (10:27)
[2017-09-06] MEDS: CALCIUM CARBONATE 500 MG CHEWABLE PO SCH ×4 (10:27→20:38)
[2017-09-06 10:35] LABS: PHOSPHORUS 2.6 mg/dl (2.5-4.9)
[2017-09-06 11:12] VITALS: Ht 175.3 cm; Wt 56.5 kg
[2017-09-06 11:24] VITALS: BP 123/72; PULSE 84; TEMP 36.7; O2SAT 98
[2017-09-06 12:56] LABS: CALCIUM 7.6 mg/dl (8.5-10.1); CREATININE 0.72 mg/dl (0.60-1.40); POTASSIUM 3.7 mmol/L (3.5-5.1)
[2017-09-06 12:57] LABS: PHOSPHORUS 2.9 mg/dl (2.5-4.9)
[2017-09-06 14:57] VITALS: BP 127/72; PULSE 86; TEMP 36.9; O2SAT 98
[2017-09-06 16:58] LABS: CALCIUM 7.3 mg/dl (8.5-10.1); CREATININE 0.63 mg/dl (0.60-1.40); POTASSIUM 3.6 mmol/L (3.5-5.1)
[2017-09-06 17:17] LABS: PHOSPHORUS 2.3 mg/dl (2.5-4.9)
[2017-09-06] MEDS ORDERED: POTASSIUM PHOS 3 MMOL/1 ML INFUSION IV STA (18:12)
[2017-09-06] MEDS ORDERED: POTASSIUM PHOSPHATE INJ 21 MMOL in SODIUM CHLORIDE 0.9% 500ML 500 ML IV ONE (18:30)
[2017-09-06] MEDS: MAGNESIUM SULFATE 1GM / D5W 100 ML IV SCH (18:48)
[2017-09-06 19:30] VITALS: BP 119/73; PULSE 80; TEMP 36.7; O2SAT 95
[2017-09-06 23:59] VITALS: BP 114/66; PULSE 73; TEMP 36.6; O2SAT 93
[2017-09-07] MEDS: NSS + 20MEQ KCL 1000ML 1,000 ML IV SCH ×4 (00:25→12:04)
[2017-09-07 05:06] VITALS: BP 113/63; PULSE 73; TEMP 36.8; O2SAT 98
[2017-09-07 06:00] LABS: HEMATOCRIT 35.4 % (42-52); HEMOGLOBIN 11.9 g/dL (14.0-18.0); MEAN CELL VOLUME 89.4 fL (80-100); MEAN CORPUSCULAR HEMOGLOBIN 30.1 pg (25-34); MEAN CORPUSCULAR HGB CONC 33.6 g/dl (32-36); MEAN PLATELET VOLUME 9.9 fL (7.4-10.4); PLATELET COUNT 212 K/uL (130-400); RED CELL DISTRIBUTION WIDTH CV 13.5 % (11.5-14.5); RED CELL DISTRIBUTION WIDTH SD 44.1 fL (36.4-46.3); WHITE BLOOD COUNT 6.52 K/uL (4.8-10.8)
[2017-09-07] MEDS: MAGNESIUM OXIDE 400 MG TAB PO SCH (07:28)
[2017-09-07] MEDS: CYANOCOBALAMIN 500 MCG TAB (VIT B-12) PO SCH (07:28)
[2017-09-07] MEDS: POTASSIUM CHLORIDE 10 MEQ TABCR PO SCH (07:28)
[2017-09-07] MEDS: CALCIUM CARBONATE 500 MG CHEWABLE PO SCH ×2 (07:29→13:38)
[2017-09-07] MEDS: CALCITRIOL 0.25 MCG CAP PO SCH (07:29)
[2017-09-07 08:03] VITALS: BP 116/75; PULSE 80; TEMP 36.4; O2SAT 100
[2017-09-07 08:57] LABS: CALCIUM 7.3 mg/dl (8.5-10.1); CREATININE 0.62 mg/dl (0.60-1.40)
[2017-09-07 09:00] LABS: PHOSPHORUS 2.7 mg/dl (2.5-4.9)
[2017-09-07] MEDS ORDERED: CITALOPRAM 40 MG TAB PO SCH (09:00)
[2017-09-07] MEDS ORDERED: MAGNESIUM OXIDE 400 MG TAB PO SCH (09:00)
[2017-09-07 10:44] VITALS: BP 111/69; PULSE 83; TEMP 36.6; O2SAT 98
--- NOTE | 2017-09-07 14:21 | Progress Note ---
Subjective Date of Service: Sep 07, 2017. Subjective Pt evaluation today including: conversation w/ patient, physical exam, lab review, review of studies, review of inpatient medication list Saw/examined the patient in room 211 No problems/issues to note today; no muscle spasms Asymptomatic at this time; eager to go home. Review of Systems Constitutional: No fever, No chills, No weakness Respiratory: No shortness of breath Cardiac: No chest pain Abdomen: No pain, No nausea, No vomiting, No diarrhea, No constipation, No GI bleeding Musculoskeletal: No joint pain, No muscle pain, No swelling, No calf pain Medications Current Inpatient Medications Medications (Trade) Dose Ordered Sig/Dylon Route Start Time Stop Time Status Last Admin Dose Admin Acetaminophen (Tylenol Tab) 650 mg Q4H PRN PO 09/05/17 15:45 10/05/17 15:44 Polyethylene (Miralax Powder Packet) 17 gm DAILY PRN PO 09/05/17 20:15 10/05/17 20:14 Potassium Chloride/Sodium Chloride 1,000 ml @ 200 mls/hr Q5H IV 09/05/17 21:00 10/05/17 20:59 09/07/17 12:04 200 MLS/HR Cyanocobalamin (Vitamin B-12 Tab) 1,000 mcg QAM PO 09/06/17 09:00 10/06/17 08:59 09/07/17 07:28 1,000 MCG Calcitriol (Rocaltrol Cap) 1 mcg QAM PO 09/06/17 09:00 10/06/17 08:59 09/07/17 07:29 1 MCG Calcium Carbonate (Tums Chew Tab) 2,000 mg QID PO 09/06/17 09:00 10/05/17 20:14 09/07/17 13:38 2,000 MG Potassium Chloride (Klor-Con M10) 40 meq DAILY PO 09/06/17 09:00 10/06/17 08:59 09/07/17 07:28 40 MEQ Citalopram Hydrobromide (celeXA TAB) 40 mg QAM PO 09/07/17 09:00 10/07/17 08:59 09/07/17 07:28 40 MG Magnesium Oxide (Mag-Ox Tab) 500 mg BID PO 09/07/17 09:00 5/24/18 20:59 Objective Vital Signs Date Time Temp Pulse Resp B/P (MAP) Pulse Ox O2 Delivery O2 Flow Rate FiO2 09/07/17 12:00 Room Air 09/07/17 10:44 36.6 83 18 111/69 (83) 98 Room Air 09/07/17 08:03 36.4 80 18 116/75 (89) 100 Room Air 09/07/17 08:00 Room Air 09/07/17 05:06 36.8 73 16 113/63 (80) 98 Room Air 09/07/17 04:00 Room Air 09/07/17 00:01 Room Air 09/06/17 23:59 36.6 73 18 114/66 (82) 93 Room Air 09/06/17 20:00 Room Air 09/06/17 19:30 36.7 80 20 119/73 (88) 95 09/06/17 16:00 Room Air 09/06/17 14:57 36.9 86 22 127/72 (90) 98 Room Air Physical Exam General Appearance: no apparent distress Respiratory/Chest: chest non-tender, lungs clear, normal breath sounds, no respiratory distress, no accessory muscle use Cardiovascular: regular rate, rhythm, no edema, no murmur Abdomen: normal bowel sounds, non tender, soft Extremities: normal inspection, no pedal edema Neurologic/Psychiatric: no motor/sensory deficits, alert, normal mood/affect Laboratory Results Last 24 Hours Test 09/06/17 16:19 09/07/17 05:45 09/07/17 08:04 Sodium Level 144 mmol/L 143 mmol/L Potassium Level 3.6 mmol/L 4.0 mmol/L Chloride Level 115 mmol/L 114 mmol/L Carbon Dioxide Level 26 mmol/L 24 mmol/L Anion Gap 3.0 mmol/L 6.0 mmol/L Blood Urea Nitrogen 8 mg/dl 5 mg/dl Creatinine 0.63 mg/dl 0.62 mg/dl Est Creatinine Clear Calc Drug Dose 130.6 ml/min 132.9 ml/min Estimated GFR () 148.0 149.0 Estimated GFR (Non- 127.7 128.5 BUN/Creatinine Ratio 12.1 8.1 Random Glucose 98 mg/dl 99 mg/dl Calcium Level 7.3 mg/dl 7.3 mg/dl Ionized Calcium 1.03 mmol/l 1.03 mmol/l Phosphorus Level 2.3 mg/dl 2.7 mg/dl Magnesium Level 1.7 mg/dl 1.8 mg/dl White Blood Count 6.52 K/uL Red Blood Count 3.96 M/uL Hemoglobin 11.9 g/dL Hematocrit 35.4 % Mean Corpuscular Volume 89.4 fL Mean Corpuscular Hemoglobin 30.1 pg Mean Corpuscular Hemoglobin Concent 33.6 g/dl RDW Standard Deviation 44.1 fL RDW Coefficient of Variation 13.5 % Platelet Count 212 K/uL Mean Platelet Volume 9.9 fL Total Creatine Kinase 902 U/L 914 U/L Assessment and Plan This is a 37 year old male with a past medical history of diarrhea-predominant IBS, depression/mood disorder, vitamin D deficiency - presents with muscle spasms and generalized weakness and subsequently found to have hypocalcemia Hypocalcemia and Secondary Hyperparathyroidism in the setting of Vitamin D deficiency, Hypomagnesemia Possibly due to GI Malabsorption 09/07 - electrolytes improving overall - plan to d/c home today - will d/c with vitamin D, calcium, magnesium, vitamin B12, calcitriol supplementation 09/06 - patient has a hx. of IBS, diarrhea predominant; possibly related to malabsorption - Ca is 6.5; low ionized calcium, low magnesium - patient received 50,000 units of Vitamin D, will use this weekly for 2-3 months - recheck Vitamin D levels in 2-3 months as outpatient - appreciate nephrology input; calcitriol dose increased to 1mcg daily - calcium carbonate QID - Mg on admission was 1.1 - repleted and now up to 1.6, Mag oxide tabs 400mg BID - repeat PRP, Ionized Ca, Mg pending Hypokalemia 09/06 - potassium levels have been low since admission - will monitor him on tele; no EKG changes - K = 2.7 at 4AM; will replete and recheck Rhabdomyolysis - CPK level is climbing to 1200 - likely due to muscle spasms that were present on admission - continue IVFs with potassium; and monitor the CPK/kidney function/electrolytes Unspecified Protein Calorie Malnutrition Weight Loss - low protein levels, low albumin levels - patient has had weight loss of 50-60lbs. - is having difficulty bringing his weight back up; secondary to diarrhea/ abdominal cramping from IBS - will consult crown and bridge dental lab technician - outpatient GI follow-up - will check transglutaminase levels Vitamin B12 deficiency - like above, his B12 deficiency is likely due to a malabsorption issue - will supplement with vitamin B12 1000mcg daily for now Depression/Mood Disorder - continue Celexa DVT ppx - ambulation FULL CODE
[2017-09-07] MEDS ORDERED: CALC0.5C PO (14:27)
[2017-09-07] MEDS ORDERED: TUMS PO (14:27)
[2017-09-07] MEDS ORDERED: VTMB12 PO (14:27)
[2017-09-07] MEDS ORDERED: POTA-639 PO (14:27)
[2017-09-07] MEDS ORDERED: MGNO400 PO (14:27)
[2017-09-07] MEDS ORDERED: ERGO500037 PO (14:27)
--- NOTE | 2017-09-07 14:39 | Discharge Instructions ---
Discharge Instructions Date of Service Sep 07, 2017. Admission Reason for Admission: [place] Spasm, Hypocalcemia Discharge Discharge Diagnosis / Problem: Muscle Spasm, Vitamin D, B12, Mg, Calcium, potassium deficiency Discharge Goals Goal(s): Decrease discomfort, Improve function, Diagnostic testing, Therapeutic intervention Activity Recommendations Activity Limitations: resume your previous activity . Instructions / Follow-Up Instructions / Follow-Up Please follow-up with Dr. Gonzáles on September 12 at 12:55PM Please follow-up with Dr. Colunga (Gastroenterology) on October 12 at 1:05PM * Please have your blood work drawn on Monday, September 11 * You will have your electrolytes checked: Calcium, potassium, magnesium, ionized calcium, phosphorous, and a CPK level * Please stay well hydrated * You will be supplemented with calcitriol, magnesium, potassium, calcium, vitamin B12 and weekly vitamin D * Further work-up by gastroenterology for malabsorption issues and unintentional weight loss * Three month follow-up with Vitamin B12/Vitamin D levels Current Hospital Diet Patient's current hospital diet: Regular Diet Discharge Diet Recommended Diet: Regular Diet Pending Studies Studies pending at discharge: no Medical Emergencies . Who to Call and When: Medical Emergencies: If at any time you feel your situation is an emergency, please call 911 immediately. . Non-Emergent Contact Non-Emergency issues call your: Primary Care Provider . . "Provider Documentation" section prepared by Roldan Murray. .
--- NOTE | 2017-09-07 14:41 | Discharge Summary ---
Discharge Summary Date of Service Sep 07, 2017. Discharge Summary Admission Date: Sep 05, 2017 at 15:27 Discharge Date: Sep 07, 2017 Discharge Disposition: Home Principal Diagnosis: [place] Spasms Hypocalcemia and Secondary Hyperparathyroidism in the setting of Vitamin D deficiency, Hypomagnesemia Possibly due to GI Malabsorption Hypokalemia Rhabdomyolysis Unspecified Protein Calorie Malnutrition + Weight Loss Vitamin B12 deficiency Depression/Mood Disorder Medication Reconciliation New Medications: Calcitriol (Calcitriol) 0.5 Mcg Cap 2 CAP PO DAILY for 30 Days, #60 CAP 2 Refills Ergocalciferol (Vitamin D 08408 Unit) 50,000 Unit Cap 1 CAP PO WK for 28 Days, #4 CAP 2 Refills Calcium Carbonate (Tums) 500 Mg Chew 2000 MG PO QID for 30 Days, #480 TABS Cyanocobalamin (Vitamin B-12) 500 Mcg Tab 1000 MCG PO QAM for 30 Days, #60 TAB Magnesium Oxide (Magnesium-Oxide) 400 Mg Tab 400 MG PO BID for 30 Days, #60 TAB Potassium Ext Rel (Klor-Con) 20 Meq Tabcr 20 MEQ PO DAILY for 30 Days, #30 TAB Continued Medications: Citalopram Hydrobromide (Celexa) 40 Mg Tab 40 MG PO QAM Hyoscyamine Sulfate (Levsin) 0.125 Mg Tab 2 TABS SL QID Ibuprofen Tab (Advil) 200 Mg Tab 600 MG PO UD Discontinued Medications: Cholecalciferol (Vitamin D3) 2,000 Unit Cap 1 CAP PO QAM Multiple Vitamin (Multi Vitamin Daily) 1 Tab Tab 1 TAB PO QAM Admission Information HPI (per Admitting provider): Patient is a 37yo M with a PMH of IBS and anxiety who presents with muscle spasms and generalized weakness beginning [employer]. Patient has been experiencing tingling in fingers, hands and feet for about a week, which has happened to him before and usually resolved with hydration. This morning at work, patient noticed he was having difficulty typing due to his hands "seizing up". Was unable to straighten out fingers and had difficulty gripping the steering wheel of his car. took him to urgent care and by this point patient was experiencing throbbing pain in both hands and legs "weren't working". [place] generally weak and was having difficulty speaking. Was sent to ED for further evaluation. Denies any fever, chills, headache, lightheadedness, visual changes , chest pain, SOB, abdominal pain, nausea, vomiting, dysuria or constipation. Has a history of IBS for which he takes Levsin. Endorses chronic bouts of diarrhea and no recent bowel changes. Denies change in appetite or unintentional weight loss. States that he received an extensive GI workup when he lived in [place] that was negative. Upon arrival in ED, was tachycardic with HR of 160. Found to have Mg of 1 and Ca of 6. Was started on IV resuscitation of electrolytes and given Ativan for anxiety. Leukocytosis of 23. Physical Exam (per Admitting): General Appearance: + thin, + pertinent finding (pale ) Head: normocephalic, atraumatic Eyes: normal inspection, PERRL, sclerae normal ENT: normal ENT inspection, hearing grossly normal, pharynx normal (dry mucous membranes ) Neck: supple, thyroid normal, trachea midline Respiratory/Chest: chest non-tender, lungs clear, normal breath sounds, no respiratory distress, no accessory muscle use Cardiovascular: no murmur, normal peripheral pulses, + tachycardia Abdomen/GI: non tender, soft, no organomegaly Back: normal inspection Extremities/Musculoskelatal: normal inspection, no calf tenderness, no pedal edema, + pertinent finding Neurologic/Psych: no motor/sensory deficits, alert, normal mood/affect, oriented x 3 Skin: warm/dry, no rash, + pallor Hospital Course This is a 37 year old male with a past medical history of diarrhea-predominant IBS, depression/mood disorder, vitamin D deficiency - presents with muscle spasms and generalized weakness and subsequently found to have hypocalcemia Hypocalcemia and Secondary Hyperparathyroidism in the setting of Vitamin D deficiency, Hypomagnesemia Possibly due to GI Malabsorption 09/07 - electrolytes improving overall - plan to d/c home today - will d/c with vitamin D, calcium, magnesium, vitamin B12, calcitriol supplementation 09/06 - patient has a hx. of IBS, diarrhea predominant; possibly related to malabsorption - Ca is 6.5; low ionized calcium, low magnesium - patient received 50,000 units of Vitamin D, will use this weekly for 2-3 months - recheck Vitamin D levels in 2-3 months as outpatient - appreciate nephrology input; calcitriol dose increased to 1mcg daily - calcium carbonate QID - Mg on admission was 1.1 - repleted and now up to 1.6, Mag oxide tabs 400mg BID - repeat PRP, Ionized Ca, Mg pending Hypokalemia 09/06 - potassium levels have been low since admission - will monitor him on tele; no EKG changes - K = 2.7 at 4AM; will replete and recheck Rhabdomyolysis - CPK level is climbing to 1200 - likely due to muscle spasms that were present on admission - continue IVFs with potassium; and monitor the CPK/kidney function/electrolytes Unspecified Protein Calorie Malnutrition Weight Loss - low protein levels, low albumin levels - patient has had weight loss of 50-60lbs. - is having difficulty bringing his weight back up; secondary to diarrhea/ abdominal cramping from IBS - will consult manager of regulatory affairs - outpatient GI follow-up - will check transglutaminase levels Vitamin B12 deficiency - like above, his B12 deficiency is likely due to a malabsorption issue - will supplement with vitamin B12 1000mcg daily for now Depression/Mood Disorder - continue Celexa DVT ppx - ambulation FULL CODE Total time spent on discharge = 45 minutes This includes examination of the patient, discharge planning, medication reconciliation, and communication with other providers. Discharge Instructions Please follow-up with Dr. Gonzáles on September 12 at 12:55PM Please follow-up with Dr. Colunga (Gastroenterology) on October 12 at 1:05PM * Please have your blood work drawn on September 11 * You will have your electrolytes checked: Calcium, potassium, magnesium, ionized calcium, phosphorous, and a CPK level * Please stay well hydrated * You will be supplemented with calcitriol, magnesium, potassium, calcium, vitamin B12 and weekly vitamin D * Further work-up by gastroenterology for malabsorption issues and unintentional weight loss * Three month follow-up with Vitamin B12/Vitamin D levels
[2017-09-07 14:56] VITALS: BP 111/69; PULSE 83; TEMP 36.6; O2SAT 98
--- NOTE | 2017-09-07 15:45 | Nephrology Progress Note ---
Nephrology Progress Note Date of Service: Sep 07, 2017. Subjective 37 yo male with hypocalcemia, hypomag, hypocalcemia. pt feels very good and anxious to go home. Objective Date Time Temp Pulse Resp B/P (MAP) Pulse Ox O2 Delivery O2 Flow Rate FiO2 09/07/17 14:56 36.6 83 18 98 Room Air 09/07/17 12:00 Room Air 09/07/17 10:44 36.6 83 18 111/69 (83) 98 Room Air 09/07/17 08:03 36.4 80 18 116/75 (89) 100 Room Air 09/07/17 08:00 Room Air 09/07/17 05:06 36.8 73 16 113/63 (80) 98 Room Air 09/07/17 04:00 Room Air 09/07/17 00:01 Room Air 09/06/17 23:59 36.6 73 18 114/66 (82) 93 Room Air 09/06/17 20:00 Room Air 09/06/17 19:30 36.7 80 20 119/73 (88) 95 09/06/17 16:00 Room Air Physical Exam: General-aaox3 Eyes-no scleral icterus ENT-mmm Neck-supple Lungs-cta Heart-rrr Abdomen-bs+ s/nt/nd Extremities-no c/c/e Neuro-nonfocal Current Inpatient Medications Medications (Trade) Dose Ordered Sig/Dylon Route Start Time Stop Time Status Last Admin Dose Admin Acetaminophen (Tylenol Tab) 650 mg Q4H PRN PO 09/05/17 15:45 10/05/17 15:44 Polyethylene (Miralax Powder Packet) 17 gm DAILY PRN PO 09/05/17 20:15 10/05/17 20:14 Potassium Chloride/Sodium Chloride 1,000 ml @ 200 mls/hr Q5H IV 09/05/17 21:00 10/05/17 20:59 09/07/17 12:04 200 MLS/HR Cyanocobalamin (Vitamin B-12 Tab) 1,000 mcg QAM PO 09/06/17 09:00 10/06/17 08:59 09/07/17 07:28 1,000 MCG Calcitriol (Rocaltrol Cap) 1 mcg QAM PO 09/06/17 09:00 10/06/17 08:59 09/07/17 07:29 1 MCG Calcium Carbonate (Tums Chew Tab) 2,000 mg QID PO 09/06/17 09:00 10/05/17 20:14 09/07/17 13:38 2,000 MG Potassium Chloride (Klor-Con M10) 40 meq DAILY PO 09/06/17 09:00 10/06/17 08:59 09/07/17 07:28 40 MEQ Citalopram Hydrobromide (celeXA TAB) 40 mg QAM PO 09/07/17 09:00 10/07/17 08:59 09/07/17 07:28 40 MG Magnesium Oxide (Mag-Ox Tab) 500 mg BID PO 09/07/17 09:00 10/05/17 20:59 Last 24 Hours Test 09/06/17 16:19 09/07/17 05:45 09/07/17 08:04 Sodium Level 144 mmol/L 143 mmol/L Potassium Level 3.6 mmol/L 4.0 mmol/L Chloride Level 115 mmol/L 114 mmol/L Carbon Dioxide Level 26 mmol/L 24 mmol/L Anion Gap 3.0 mmol/L 6.0 mmol/L Blood Urea Nitrogen 8 mg/dl 5 mg/dl Creatinine 0.63 mg/dl 0.62 mg/dl Est Creatinine Clear Calc Drug Dose 130.6 ml/min 132.9 ml/min Estimated GFR () 148.0 149.0 Estimated GFR (Non- 127.7 128.5 BUN/Creatinine Ratio 12.1 8.1 Random Glucose 98 mg/dl 99 mg/dl Calcium Level 7.3 mg/dl 7.3 mg/dl Ionized Calcium 1.03 mmol/l 1.03 mmol/l Phosphorus Level 2.3 mg/dl 2.7 mg/dl Magnesium Level 1.7 mg/dl 1.8 mg/dl White Blood Count 6.52 K/uL Red Blood Count 3.96 M/uL Hemoglobin 11.9 g/dL Hematocrit 35.4 % Mean Corpuscular Volume 89.4 fL Mean Corpuscular Hemoglobin 30.1 pg Mean Corpuscular Hemoglobin Concent 33.6 g/dl RDW Standard Deviation 44.1 fL RDW Coefficient of Variation 13.5 % Platelet Count 212 K/uL Mean Platelet Volume 9.9 fL Total Creatine Kinase 902 U/L 914 U/L Assessment & Plan multiple electrolyte abnormalities-thought to be malabsorption with presumed GI wasting. continue oral medication supplements and recheck labs again on monday. cpk is trending down. continue aggressive fluids when he goes home. spep negative.
== END 2017-09-07 16:03 | disposition home or self-care (01) | DRG 644 ==
LOC: C.EDB 12:23 → C.2E 15:27 → ENRESERV 16:00
PROVIDERS: ADMIT Hospitalist; ATTEND Family Medicine
DX: E21.1 Secondary hyperparathyroidism, not elsewhere classified (principal); E46 Unspecified protein-calorie malnutrition; Z68.1 Body mass index [BMI] 19.9 or less, adult; M62.82 Rhabdomyolysis; K58.0 Irritable bowel syndrome with diarrhea; E55.9 Vitamin D deficiency, unspecified; E87.6 Hypokalemia; E53.8 Deficiency of other specified B group vitamins; E86.0 Dehydration; D72.829 Elevated white blood cell count, unspecified; R00.0 Tachycardia, unspecified; F32.9 Major depressive disorder, single episode, unspecified; F41.9 Anxiety disorder, unspecified; Z79.899 Other long term (current) drug therapy; Z88.1 Allergy status to other antibiotic agents